=== PATIENT | female | born 1970 | race Caucasian/White ===

== ENCOUNTER 2016-07-23 18:50 | Emergency (ER) | payer MEDICAID ==
[~2016-07-23] VITALS: Ht 172.7 cm; Wt 117.8 kg
[~2016-07-23 18:50] MED LIST: IBUP800T23 PO
[2016-07-23 18:57] VITALS: BP 147/90; PULSE 77; RESP 18; TEMP 98.3; O2SAT 99
== END 2016-07-23 19:48 | disposition left against medical advice (07) ==
LOC: PHED 18:50
DX: Z53.29 Procedure and treatment not carried out because of patient's decision for other reasons (principal)
CPT/HCPCS: 99281

== ENCOUNTER 2017-08-15 07:07 | Emergency (ER) | payer MEDICAID ==
[~2017-08-15] VITALS: Ht 172.7 cm; Wt 123.0 kg
[2017-08-15 07:12] VITALS: BP 180/89; PULSE 76; RESP 16; TEMP 99; O2SAT 97
[2017-08-15] MEDS ORDERED: FLUO-1 PO (07:31)
[2017-08-15] MEDS ORDERED: CHOLESTEROL MED PO (07:31)
[2017-08-15] MEDS ORDERED: traMADol HCL 50 MG TAB PO ONE (08:00)
--- NOTE | 2017-08-15 08:06 | PD ---
HPI . Arm injury Chief Complaint: Injury Time Seen by Provider: 07:38 Travel History International Travel<30 days: No Contact w/Intl Traveler<30days: No Traveled to known affect area: No History of Present Illness HPI This patient presents for the evaluation of an injury to the left forearm. She inadvertently rolled out of bed at 3:30 in the morning. She landed on the left forearm. She has treated it prior to arrival with a hot shower and ibuprofen, 800 mg. Despite this, there has been no improvement in her pain. She rates the pain at 9/10. PFSH Past Medical History Depression: Yes Diminished Hearing: No ?: Not LMP: 3 WEEKS : 1 Para: 1 Tubal Ligation: Yes (2007) Past Surgical History Section: Yes Tonsillectomy: Yes (5 years old) Other Surgery: Yes (COLONOSCOPY WITH BIOPSY) Social History Alcohol Use: Yes (Occ.) Tobacco Use: No Substance Use: No Allergies-Medications (Allergen,Severity, Reaction): Coded Allergies: amoxicillin (Unverified Allergy, Severe, BLISTER, 08/15/17) erythromycin base (Unverified Allergy, Severe, HIVES, 08/15/17) sulfamethoxazole (Unverified Allergy, Severe, KIDNEY FAILURE, 08/15/17) trimethoprim (Unverified Allergy, Severe, KIDNEY FAILURE, 08/15/17) Reported Meds & Prescriptions Reported Meds & Active Scripts Active Ibuprofen 800 Mg Tab 800 Mg PO TID Reported [Cholesterol Med] 1 Tab PO DAILY Prozac (Fluoxetine HCl) 10 Mg Cap 10 Mg PO DAILY Review of Systems Except as stated in HPI: all other systems reviewed are Neg Physical Exam Narrative GENERAL: Awake and alert and in no acute distress. SKIN: Warm and dry. Normal color and turgor. Intact. HEAD: Normocephalic/atraumatic. EYES: Pupils are equal. Extraocular movements are intact. NECK: Normal range of motion. Supple. CARDIOVASCULAR: Regular rate and rhythm. RESPIRATORY: Nonlabored respirations. Normal sats. MUSCULOSKELETAL: Left forearm has no obvious deformity. No bruising or swelling. No point tenderness. Distally neurovascularly intact. NEUROLOGICAL: A and O 3. Nonfocal. PSYCHIATRIC: Appropriate mood and affect. Data Data Last Documented VS Vital Signs Date Time Temp Pulse Resp B/P (MAP) Pulse Ox O2 Delivery O2 Flow Rate FiO2 08/15/17 07:12 99.0 76 16 180/89 (119) 97 Orders Orders Forearm (2vws) (08/15/17 07:49) Ice/Cold Pack (08/15/17 07:49) Tramadol (Ultram) (08/15/17 08:00) MDM Medical Decision Making Medical Screen Exam Complete: Yes Emergency Medical Condition: Yes Differential Diagnosis Differential diagnosis of extremity trauma includes but is not limited to fracture, sprain or strain, dislocation, contusion Narrative Course This patient presents for the evaluation of a left forearm injury. She states that she rolled out of bed onto her left forearm at about 330 this morning. She is complaining with diffuse left forearm pain. Her examination is benign. Last Impressions Radius/Ulna X-Ray 08/15/17 0749 Signed Impressions: CONCLUSION: 1. No acute fracture or dislocation. The x-ray was independently reviewed by me. The patient will be discharged home with instructions and rice therapy. Diagnosis Primary Impression: Contusion of right forearm Qualified Codes: S50.11XA - Contusion of right forearm, initial encounter Patient Instructions: Contusion in Adults (DC), General Instructions, RICE Therapy (ED) Disposition: 01 DISCHARGE HOME Condition: Stable Irene Cadena MD Aug 15, 2017 08:06
--- NOTE | 2017-08-15 08:48 | RADRPT ---
EXAM DATE: 08/15/2017 8:14 AM EDT AGE/SEX: 47 years / Female INDICATIONS: Left mid-forearm pain post fall from bed this morning. CLINICAL DATA: This is the patient's initial encounter. Patient reports that signs and symptoms have been present for 1 day and indicates a pain score of 7/10. MEDICAL/SURGICAL HISTORY: None. section. Tubal ligation. Tonsillectomy. Bilateral c arpal tunnel release. COMPARISON: No prior exams available for comparison. FINDINGS: Bony structures are intact and in normal alignment. Osseous density is normal. Soft tissues are unre markable. No radiopaque foreign bodies seen. CONCLUSION: 1. No acute fracture or dislocation. Electronically signed by: Dario Martinez MD 08/15/2017 8:47 AM EDT
[2017-08-15] MEDS ORDERED: ADDE10 PO (14:07)
== END 2017-08-15 09:28 | disposition home or self-care (01) ==
LOC: PHEFT 07:07
DX: S50.12XA Contusion of left forearm, initial encounter (principal); W06.XXXA Fall from bed, initial encounter
CPT/HCPCS: 73090; 99283

== ENCOUNTER 2017-08-15 13:47 | Emergency (ER) | payer MEDICAID ==
[~2017-08-15] VITALS: Ht 172.7 cm; Wt 123.0 kg
[~2017-08-15 13:47] MED LIST changes: +CHOLESTEROL MED PO; +FLUO-1 PO
[2017-08-15 13:53] VITALS: BP 203/105; PULSE 74; RESP 16; TEMP 98.6; O2SAT 99
[2017-08-15] MEDS ORDERED: ADDE10 PO (14:07)
[2017-08-15 14:15] VITALS: BP 187/108
[2017-08-15] MEDS ORDERED: KETOROLAC TROMETHAMINE 60 MG/2 ML (IM) VIAL IM ONE (14:15)
--- NOTE | 2017-08-15 14:19 | PD ---
HPI Chief Complaint: Musculoskeletal Complaint Time Seen by Provider: 14:06 Travel History International Travel<30 days: No Contact w/Intl Traveler<30days: No Traveled to known affect area: No History of Present Illness HPI 47-year-old female presents to the emergency department for reevaluation of left forearm pain. Patient was seen earlier today for evaluation after she states she rolled out of bed this morning. She had x-ray completed which was negative for any acute fracture. However, she states the pain has worsened. Current pain is 10/10. Exacerbating factors movement. Mild severity. PFSH Past Medical History ADHD: Yes Depression: Yes High Cholesterol: Yes Diminished Hearing: No Immunizations Current: Yes Tetanus Vaccination: > 5 Years Influenza Vaccination: No ?: Not LMP: 3 WEEKS : 1 Para: 1 Tubal Ligation: Yes (2007) Past Surgical History Section: Yes Tonsillectomy: Yes (5 years old) Other Surgery: Yes (COLONOSCOPY WITH BIOPSY) Social History Alcohol Use: Yes (Occ.) Tobacco Use: No Substance Use: No Allergies-Medications (Allergen,Severity, Reaction): Coded Allergies: amoxicillin (Unverified Allergy, Severe, BLISTER, 08/15/17) erythromycin base (Unverified Allergy, Severe, HIVES, 08/15/17) sulfamethoxazole (Unverified Allergy, Severe, KIDNEY FAILURE, 08/15/17) trimethoprim (Unverified Allergy, Severe, KIDNEY FAILURE, 08/15/17) Reported Meds & Prescriptions Reported Meds & Active Scripts Active Reported Adderall (Amphetamine-Dextroamphetamine) 10 Mg Tab 10 Mg PO DIRECTED Take 10 mg in the morning & 5 mg (1/2 tab) at noon. [Cholesterol Med] 1 Tab PO DAILY Prozac (Fluoxetine HCl) 10 Mg Cap 10 Mg PO DAILY Review of Systems Except as stated in HPI: all other systems reviewed are Neg Physical Exam Narrative GENERAL: Well-nourished, well-developed female patient, ambulatory. Afebrile. SKIN: Focused skin assessment warm/dry. No lacerations or abrasions. HEAD: Normocephalic. Atraumatic. EYES: No scleral icterus. No injection or drainage. NECK: Supple, trachea midline. No JVD or lymphadenopathy. CARDIOVASCULAR: Regular rate and rhythm without murmurs, gallops, or rubs. Left radial pulses 2+. RESPIRATORY: Breath sounds equal bilaterally. No accessory muscle use. Lung sounds are clear to auscultation. GASTROINTESTINAL: Abdomen soft, non-tender, nondistended. MUSCULOSKELETAL: No cyanosis, or edema. Patient has tenderness over left forearm, left medial wrist. No snuffbox tenderness. BACK: Nontender without obvious deformity. No CVA tenderness. Data Data Last Documented VS Vital Signs Date Time Temp Pulse Resp B/P (MAP) Pulse Ox O2 Delivery O2 Flow Rate FiO2 08/15/17 14:15 187/108 (134) 08/15/17 13:53 98.6 74 16 99 Orders Orders Splint Or Brace Apply/Monitor (08/15/17 14:15) Ketorolac Inj (Toradol Inj) (08/15/17 14:15) MDM Medical Decision Making Medical Screen Exam Complete: Yes Emergency Medical Condition: Yes Medical Record Reviewed: Yes Differential Diagnosis Contusion versus fracture versus sprain Narrative Course 47-year-old female presents back to the emergency department for evaluation of left forearm pain. Patient was seen and evaluated earlier this morning and an x -ray was completed which was negative for acute bony injury. The patient states the pain has worsened. She took Tylenol a few hours ago at home. I discussed with the patient that she needs to take anti-inflammatories, ice, elevate. She is given Toradol 60 mg IM and provided a Velcro wrist splint. She is to follow-up with her primary care physician. The patient was discharged in stable condition with instructions, including return instructions and follow up instructions. Diagnosis Primary Impression: Contusion of left forearm Qualified Codes: S50.12XD - Contusion of left forearm, subsequent encounter Referrals: Primary Care Physician call for appointment Patient Instructions: Contusion in Adults (ED), General Instructions Additional Instructions: Ibuprofen every 6-8 hours as needed for pain. Ice for 20 minutes on, 20 minutes off. Wear wrist splint for support. Rest. Elevate. Follow-up with a primary care physician. Return to the emergency department for any acute worsening of symptoms. Med/Other Pt SpecificInfo: No Change to Meds Disposition: 01 DISCHARGE HOME Condition: Stable Allie Daniels MIGUEL Aug 15, 2017 14:19
== END 2017-08-15 14:33 | disposition home or self-care (01) ==
LOC: PHEFT 13:47
DX: S50.12XA Contusion of left forearm, initial encounter (principal); F32.9 Major depressive disorder, single episode, unspecified; F90.9 Attention-deficit hyperactivity disorder, unspecified type; W06.XXXA Fall from bed, initial encounter
CPT/HCPCS: 96372; 99283; J1885; L3908